=== PATIENT | male | born 1980 | race Caucasian/White ===

== ENCOUNTER 2018-02-03 10:39 | Emergency (ER) | payer OTHER ==
[~2018-02-03 10:39] MED LIST: ALB18R INH; CYC10 PO; DIA5 PO; LOR75 PO; MONT10TA PO; NAPR-1043 PO; OXYC-373 PO; TRA50 PO
--- NOTE | 2018-02-03 10:41 | ER Report ---
History and Physical Time Seen By MD: 10:46 HPI/ROS CHIEF COMPLAINT: Right-sided abdominal pain HISTORY OF PRESENT ILLNESS: Patient is a 37-year-old male with no contributory past medical history who presents to the emergency department for evaluation of sudden onset 10 out of 10 right lower quadrant abdominal pain. There is some radiation to the right flank as well as into the right groin. There is no scrotal or testicular pain. Patient states symptoms were severe onset and caused him to vomit. He is vomited approximately 3 times prior to presenting to the emergency department. Symptoms began at approximately 8:30 this morning. Patient denies similar episodes in the past. Patient denies any fevers or chills. He denies chest pain or shortness of breath. REVIEW OF SYSTEMS: Constitutional: No fever, no chills. Eyes: No discharge. ENT: No sore throat. Cardiovascular: No chest pain, no palpitations. Respiratory: No cough, no shortness of breath. Gastrointestinal: Right-sided abdominal pain, vomiting Genitourinary: No hematuria. Musculoskeletal: No back pain. Skin: No rashes. Neurological: No headache. Allergies: Coded Allergies: cefuroxime (Verified Allergy, Mild, RASH, 02/03/18) NSAIDS (Non-Steroidal Anti-Inflamma (Verified Adverse Reaction, Unknown, GI bleeds, 02/03/18) Home Meds Active Scripts Famotidine (PEPCID) 20 Mg Tablet, 20 MG PO BID, #10 TAB 0 Refills Prov:CHERRY SPENCE MD 02/03/18 Tamsulosin Hcl (FLOMAX) 0.4 Mg Cap.er.24h, 0.4 MG PO QHS, #2 CAP 0 Refills next dose on 02/04/18 Prov:CHERRY SPENCE MD 02/03/18 Ibuprofen (IBUPROFEN) 600 Mg Tablet, 1 TAB PO Q6H for PAIN, #15 TAB 0 Refills Prov:CHERRY SPENCE MD 02/03/18 Oxycodone Hcl/Acetaminophen (PERCOCET 5-325 MG TABLET) 1 Each Tablet, 1-2 EACH PO Q4-6H for PAIN, #20 TAB 0 Refills Prov:CHERRY SPENCE MD 02/03/18 Reported Medications Mometasone/Formoterol (DULERA 200 MCG/5 MCG INHALER) 13 Gm Inh, 2 PUFF INH DAILY , INH 02/03/18 Discontinued Reported Medications Oxycodone Hcl/Acetaminophen (OXYCODONE-ACETAMINOPHEN 5-325) 1 Each Tablet, 1-2 EACH PO Q6H Y for PAIN, #40 09/21/15 Diazepam (VALIUM) 5 Mg Tablet, 5 MG PO Q6H Y for SPASMS, #20 TAB 09/21/15 Albuterol Sulfate (VENTOLIN HFA) 18 Gm Inh, 1-2 PUFF INH 3-4XD Y for asthma, INH 09/17/15 Montelukast Sodium (SINGULAIR) 10 Mg Tablet, 10 MG PO QDAY, TAB 09/17/15 Cyclobenzaprine Hcl (Flexeril) 10 Mg Tab, 10 MG PO TID Y, 0 Refills 09/30/11 Past Medical/Surgical History Noncontributory Hx Smoking: No Exposure to Second Hand Smoke?: No Hx Substance Use Disorder: No Hx Alcohol Use: Yes Constitutional Vital Sign - Last 24 Hours 02/03/18 02/03/18 02/03/18 02/03/18 10:43 11:00 11:15 11:30 Temp 97.5 Pulse 62 65 Resp 16 B/P (MAP) 148/98 147/95 (112) 156/121 (133) 153/104 (120) Pulse Ox 97 100 100 O2 Delivery Room Air 02/03/18 02/03/18 11:45 12:00 B/P (MAP) 156/103 (120) 143/99 (114) Pulse Ox 95 Intake and Output 02/03/18 02/03/18 02/04/18 15:00 23:00 07:00 Intake Total 50 ml Balance 50 ml Physical Exam General/Constitutional: Patient is awake, alert, nontoxic and in no acute respiratory distress. Head: Normocephalic and atraumatic. Eyes: Conjunctival clear, Pupils are equal and reactive to light. Sclera are clear and anicteric. Ears:External canals are clear. Tympanic membranes are clear with normal landmarks and light reflex. Nares: No rhinorrhea or bleeding. Turbinates are pink and moist. Oropharyngeal: Mucous membranes are moist. There is no pharyngeal erythema or exudate. There are no palatal petechiae. Uvula is midline and symmetrical. Neck: Supple, no adenopathy. Cardiovascular: Heart is regular rate and rhythm without audible murmurs, rubs or gallops. Pulmonary: Lungs are clear to auscultation bilaterally. There are no wheezes, rales, or rhonchi. Chest rise is symmetrical Abdomen: Soft, right lower quadrant abdominal pain no rebound tenderness Extremities: No gross deformities, No peripheral cyanosis. Able to move all 4 extremities. Neuro: Alert and oriented X3, Skin: No rashes, skin is warm dry and well perfused. Medical Decision Making Data Points Result Diagram: 02/03/18 1050 Laboratory Hematology Test 02/03/18 10:49 02/03/18 10:50 Urine Color Yellow Urine Clarity Clear Urine pH 6.0 pH (4.8-9.5) Urine Specific [place] 1.017 Urine Protein Negative mg/dL (NEGATIVE) Urine Glucose (UA) Negative mg/dL (NEGATIVE) Urine Ketones Negative mg/dL (NEGATIVE) Urine Blood Negative (NEGATIVE) Urine Nitrite Negative (NEGATIVE) Urine Bilirubin Negative (NEGATIVE) Urine Urobilinogen 2.0 mg/dL (0.2-1.9) Urine Leukocyte Esterase Negative (NEGATIVE) Urine RBC 6 /HPF (0-2/HPF) Urine WBC 2 /HPF (0-5/HPF) Urine Squamous Epithelial Cells None /LPF (</=FEW) Urine Bacteria Negative /HPF (NONE-FEW) Urine Mucus Few /HPF (NONE-FEW) Sodium Level 141 mmol/L (137-145) Potassium Level 3.8 mmol/L (3.5-5.0) Chloride Level 99 mmol/L (98-107) Carbon Dioxide Level 26 mmol/L (22-30) Blood Urea Nitrogen 10 mg/dl (9-21) Creatinine 1.10 mg/dl (0.66-1.25) Glomerular Filtration Rate Calc > 60.0 Random Glucose 129 mg/dl (75-110) Calcium Level 9.9 mg/dl (8.4-10.2) Chemistry Test 02/03/18 10:49 02/03/18 10:50 Urine Color Yellow Urine Clarity Clear Urine pH 6.0 pH (4.8-9.5) Urine Specific [place] 1.017 Urine Protein Negative mg/dL (NEGATIVE) Urine Glucose (UA) Negative mg/dL (NEGATIVE) Urine Ketones Negative mg/dL (NEGATIVE) Urine Blood Negative (NEGATIVE) Urine Nitrite Negative (NEGATIVE) Urine Bilirubin Negative (NEGATIVE) Urine Urobilinogen 2.0 mg/dL (0.2-1.9) Urine Leukocyte Esterase Negative (NEGATIVE) Urine RBC 6 /HPF (0-2/HPF) Urine WBC 2 /HPF (0-5/HPF) Urine Squamous Epithelial Cells None /LPF (</=FEW) Urine Bacteria Negative /HPF (NONE-FEW) Urine Mucus Few /HPF (NONE-FEW) Glomerular Filtration Rate Calc > 60.0 Calcium Level 9.9 mg/dl (8.4-10.2) Urinalysis Test 02/03/18 10:49 Urine Color Yellow Urine Clarity Clear Urine pH 6.0 pH (4.8-9.5) Urine Specific [place] 1.017 Urine Protein Negative mg/dL (NEGATIVE) Urine Glucose (UA) Negative mg/dL (NEGATIVE) Urine Ketones Negative mg/dL (NEGATIVE) Urine Blood Negative (NEGATIVE) Urine Nitrite Negative (NEGATIVE) Urine Bilirubin Negative (NEGATIVE) Urine Urobilinogen 2.0 mg/dL (0.2-1.9) Urine Leukocyte Esterase Negative (NEGATIVE) Urine RBC 6 /HPF (0-2/HPF) Urine WBC 2 /HPF (0-5/HPF) Urine Squamous Epithelial Cells None /LPF (</=FEW) Urine Bacteria Negative /HPF (NONE-FEW) Urine Mucus Few /HPF (NONE-FEW) ED Course/Re-evaluation Clinical Indication for ER IV: IV Access ED Course 02/03/2018 10:52:15 am bedside ultrasound shows moderate right-sided hydronephrosis with hydroureter. 02/03/2018 11:37:37 am patient still having significant pain after 1 mg of IV Dilaudid followed by 50 g of fentanyl and 0.5 mg of Ativan. Patient does have an allergy to NSAIDs which is a stomach ulcers but this is only when he takes it for a prolonged period of time discussed giving him a dose of Toradol IV which he has agreed to at this time. Decision to Disposition Date: Feb 03, 2018 Decision to Disposition Time: 12:14 Depart Departure Latest Vital Signs Vital Signs Date Time Temp Pulse Resp B/P (MAP) Pulse Ox O2 Delivery O2 Flow Rate FiO2 02/03/18 12:00 143/99 (114) 95 02/03/18 11:30 65 02/03/18 10:43 97.5 16 Room Air Impression: Primary Impression: Kidney stone Condition: Improved Disposition: HOME OR SELF-CARE New Scripts Famotidine (PEPCID) 20 Mg Tablet 20 MG PO BID, #10 TAB 0 Refills Prov: CHERRY SPENCE MD 02/03/18 Tamsulosin Hcl (FLOMAX) 0.4 Mg Cap.er.24h 0.4 MG PO QHS, #2 CAP 0 Refills next dose on 02/04/18 Prov: CHERRY SPENCE MD 02/03/18 Ibuprofen (IBUPROFEN) 600 Mg Tablet 1 TAB PO Q6H for PAIN, #15 TAB 0 Refills Prov: CHERRY SPENCE MD 02/03/18 Oxycodone Hcl/Acetaminophen (PERCOCET 5-325 MG TABLET) 1 Each Tablet 1-2 EACH PO Q4-6H for PAIN, #20 TAB 0 Refills Prov: CHERRY SPENCE MD 02/03/18 Departure Forms: ER Transition Record, Medications Reconciliation, Patient Portal Information Patient Instructions: Kidney Stones (DC) CHERRY SPENCE MD Feb 03, 2018 10:41
[2018-02-03] MEDS ORDERED: DULERAPT INH (10:47)
[2018-02-03] MEDS ORDERED: ONDANSETRON 4 MG/2 ML VIAL IVP ONE (10:55)
[2018-02-03] MEDS ORDERED: HYDROmorphone* 1 MG/ML 1 MG/ML ML IVP ONE (10:55)
[2018-02-03] MEDS ORDERED: fentaNYL CITR 100 MCG/2 ML AMP IVP ONE (11:20)
[2018-02-03] MEDS ORDERED: LORazepam 2 MG/ML VIAL IVP ONE (11:20)
[2018-02-03] MEDS ORDERED: TAMSULOSIN HCL 0.4 MG CAP PO ONE (11:20)
--- NOTE | 2018-02-03 11:38 | RADIOLOGY IMAGING REPORT ---
FACILITY: [facility] PATIENT NAME: David Mackenzie : 1980 MR: [id number] V: [id number] EXAM DATE: ORDERING PHYSICIAN: CHERRY SPENCE TECHNOLOGIST: Location: Patient: David Mackenzie : 1980 Visit/Account:[id number] Date of Sevice: 02/03/2018 COMPUTED TOMOGRAPHY OF THE Abdomen and Pelvis without CONTRAST INDICATION: Right flank pain. TECHNIQUE: Contiguous axial 2.[address] images were obtained through the abdomen and pelvis without co ntrast. Coronal and sagittal reformatted images were submitted. COMPARISON: No relevant comparisons. FINDINGS: Lung bases: Clear. Liver and hepatic vasculature: Limited liver parenchymal evaluation without contrast. No ascites. No apparent focal lesion. Gallbladder and bile ducts: Normal Spleen: Normal Pancreas: Normal Adrenals: Normal Kidneys, ureters and bladder: Nonobstructive 3-4 mm left renal calculus. Mild hydronephrosis on the right and mild hydroureter with a 3-4 mm calculus at the right UVJ or just inside the bladder. An add itional punctate right renal calculus is nonobstructive. The bladder is decompressed. Retroperitoneum and aorta: Normal caliber aorta. No adenopathy. GI tract, mesentery and peritoneum: Normal appendix. Extensive sigmoid and left colonic diverticula w ithout findings of diverticulitis. Prostate: Unremarkable. Bones and soft tissues: No acute osseous abnormality. IMPRESSION: 1. 3-4 mm calculus at the right UVJ or just inside bladder results in mild right hydroureter and hydr onephrosis. 2. Additional nonobstructive small renal calculi bilaterally as above. 3. Diverticulosis without findings of diverticulitis. One of the following dose optimization techniques was utilized in the performance of this exam: Autom ated exposure control; adjustment of the mA and/or kV according to the patient's size; or use of an i terative reconstruction technique. Specific details can be referenced in the facility's radiology C T exam operational policy. Report Dictated By: Yulissa Franks MD at 02/03/2018 11:25 AM Report E-Signed By: Yulissa Franks MD at 02/03/2018 11:34 AM [id number]
[2018-02-03] MEDS ORDERED: KETOROLAC 15 MG/ML VIAL IVP ONE (11:40)
[2018-02-03] MEDS ORDERED: FAMOTIDINE(*) 20MG/50ML PREMIX 50 ML IVPB ONE (11:40)
[2018-02-03 12:00] VITALS: BP 143/99
[2018-02-03] MEDS ORDERED: IBUP600T22 PO (12:12)
[2018-02-03] MEDS ORDERED: TAMS0.4C25 PO (12:12)
[2018-02-03] MEDS ORDERED: OXYC-865 PO (12:12)
[2018-02-03] MEDS ORDERED: FAMO20TA28 PO (12:14)
== END 2018-02-03 12:21 | disposition home or self-care (01) ==
LOC: ER 10:56
DX: N20.0 Calculus of kidney (principal); N13.30 Unspecified hydronephrosis; N13.4 Hydroureter
CPT/HCPCS: 74176; 81001; 96365; 96375; 99284; J1170; J1885; J2060; J2405; J3010; J3490; 82310; 82374; 82435; 82565; 82947; 84132; 84295; 84520